=== PATIENT | male | born 1940 | race Caucasian/White ===

== ENCOUNTER 2018-02-02 17:28 | Emergency (ER) | payer MEDICARE, BC ==
[2018-02-02] MEDS ORDERED: LIDOCAINE HCL 1% MPF 30 SOL ONE (17:36)
[2018-02-02] MEDS ORDERED: CEFTRIAXONE 1 GM PDS ONE (18:30)
[2018-02-02] MEDS ORDERED: CEFTRIAXONE 1 GM PDS 1 GM in SODIUM CHLORIDE 0.9% 50 ML 50 ML IV ONE (18:30)
[2018-02-02 18:47] LABS: HEMATOCRIT 40 % (39-53); HEMOGLOBIN 12.9 gm/dl (13.5-17.7); MEAN CORPUSCULAR HEMOGLOBIN 28.4 pg (27.0-32.0); MEAN CORPUSCULAR HGB CONC 32.1 gm/dl (32.0-36.0); MEAN CORPUSCULAR VOLUME 88 fL (80-100)
[2018-02-02 18:51] LABS: CALCIUM 8.1 mg/dl (8.5-10.1); CREATININE 2.02 mg/dl (0.80-1.30); POTASSIUM 4.7 mMol/L (3.5-5.1)
[2018-02-02 18:57] LABS: ACANTHOCYTES PRESENT; ANISOCYTOSIS SLIGHT AMT; BAND NEUTROPHILS % (MANUAL) 17 %; BASOPHILS % (MANUAL) 0 % (0-3); EOSINOPHILS % (MANUAL) 0 % (0-9); LYMPHOCYTES % (MANUAL) 11 % (10-50); MONOCYTES % (MANUAL) 6 % (0-12); NEUTROPHILS % (MANUAL) 66 % (37-80); OVALOCYTES PRESENT; POIKILOCYTOSIS SLIGHT AMT; TARGET CELLS PRESENT
[2018-02-02] MEDS ORDERED: SODIUM CHLORIDE 0.9% 1000 ML SOL IV SCH (19:15)
[2018-02-02 19:46] LABS: APPEARANCE,URINE Clear; BILIRUBIN,URINE NEGATIVE (NEGATIVE); COLOR,URINE Yellow; GLUCOSE, URINE (UA) NEGATIVE (NEGATIVE); KETONES,URINE NEGATIVE (NEGATIVE); LEUKOCYTE ESTERASE ,URINE NEGATIVE (NEGATIVE); NITRATE,URINE NEGATIVE (NEGATIVE); OCCULT BLOOD,URINE NEGATIVE (NEG-TRACE); PH,URINE 5.5; UROBILINOGEN,URINE 0.2 (0.2-1.0 EU)
[2018-02-02 19:58] LABS: EPITHELIAL CELLS NEGATIVE (SQUAMOUS); RBC,URINE 0-1 (0-3AV/HPF); WBC,URINE 0-1 (0-5AV/HPF)
[2018-02-02 19:59] LABS: BACTERIA NEGATIVE (< 1+); CRYSTALS NEGATIVE (0-3 AVE/HPF)
[2018-02-03 02:22] VITALS: BP 119/71; PULSE 78; RESP 16; TEMP 100.5; O2SAT 94
== END 2018-02-02 20:53 | disposition home or self-care (01) | DRG 864 ==
LOC: ED 17:28
DX: R50.9 Fever, unspecified (principal); Z90.81 Acquired absence of spleen
CPT/HCPCS: 36415; 71045; 80048; 81001; 85007; 85027; 87040; 96365; 96366; 99283; 99284; J0696; A6232; J2001

== ENCOUNTER 2018-12-17 08:10 | Day surgery (SDC) | payer BC ==
[~2018-12-17 08:10] MED LIST: LIDOCAINE HCL 1% MPF 30 SOL ONE; PROPOFOL 500 MG/50 ML EMU IV ONE
[2018-12-17 11:03] VITALS: BP 119/62; PULSE 71; RESP 12; TEMP 97.6; O2SAT 92
== END 2018-12-17 11:31 | disposition home or self-care (01) | DRG 951 ==
LOC: SURG 08:10
PROVIDERS: ATTEND Surgery
DX: Z12.11 Encounter for screening for malignant neoplasm of colon (principal); K57.32 Diverticulitis of large intestine without perforation or abscess without bleeding; R19.5 Other fecal abnormalities; E11.9 Type 2 diabetes mellitus without complications; D12.5 Benign neoplasm of sigmoid colon
CPT/HCPCS: 82962; J2001; J2704